=== PATIENT | male | born 1970 | race Caucasian/White ===

== ENCOUNTER 2018-07-10 10:41 | Emergency (ER) | payer BC ==
[2018-07-10] MEDS ORDERED: Ibuprofen TAB* 600 MG PO ONE (11:07)
[2018-07-10] MEDS ORDERED: Morphine VIAL* 10 MG/ML 1 ML VIAL IV ONE (11:24)
--- NOTE | 2018-07-10 11:32 | UC ---
Abdominal Pain Male HPI - HPI Summary HPI Summary: 5 days ago developed left lower quadrant abdominal pain. Had one episode of emesis due to the severe pain but he seemed to improve over the next couple of days. But since yesterday he has been much worse. He has focal left lower quadrant pain and has had intermittent loose stools and constipation over the past few days. No fever. Is diaphoretic on presentation to the . No previous similar episodes. - History of Current Complaint Chief Complaint: UCAbdominalPain Stated Complaint: ABD PAIN Time Seen by Provider: 07/10/18 11:04 Hx Obtained From: Patient Onset/Duration: Sudden Onset, Lasting Days, Still Present Timing: Constant Severity Initially: Moderate Severity Currently: Severe Pain Intensity: 10 Pain Scale Used: 0-10 Numeric Location: Discrete At: LLQ Radiates: No Character: Sharp Aggravating Factor(s): Nothing Alleviating Factor(s): Nothing Associated Signs And Symptoms: Positive: Diaphoresis, Constipation, Vomiting, Diarrhea. Negative: Fever, Back Pain, Urinary Symptoms, Penile Discharge - Allergies/Home Medications Allergies/Adverse Reactions: Allergies Allergy/AdvReac Type Severity Reaction Status Date / Time No Known Allergies Allergy Verified 01/11/13 18:03 Home Medications: Home Medications Escitalopram Oxalate [Lexapro 10 mg] 10 mg PO DAILY 07/10/18 [History Confirmed 07/10/18] Valsartan/Hydrochlorothiazide [Valsartan-Hctz 160-25 mg Tab] 1 tab PO DAILY [History Confirmed 07/10/18] PMH/Surg Hx/FS Hx/Imm Hx Cardiovascular History: Hypertension - Surgical History Surgical History: None - Family History Known Family History: Positive: Hypertension - Social History Alcohol Use: None Substance Use Type: None Smoking Status (MU): Never Smoked Tobacco - Immunization History Most Recent Tetanus Shot: 7 mos ago Review of Systems All Other Systems Reviewed And Are Negative: Yes Constitutional: Positive: Negative Respiratory: Positive: Negative Cardiovascular: Positive: Negative Gastrointestinal: Positive: Abdominal Pain, Vomiting, Diarrhea, Nausea Genitourinary: Positive: Negative Physical Exam Triage Information Reviewed: Yes Appearance: Well-Nourished, Pain Distress - SEVERE - PT LEANING OVER, HOLDING LEFT SIDE Vital Signs: Initial Vital Signs Temp 97.6 F 07/10/18 10:51 Pulse 71 07/10/18 10:51 Resp 18 07/10/18 10:51 BP 159/102 07/10/18 10:51 Pulse Ox 98 07/10/18 10:51 Laboratory Tests 07/10/18 11:12 POC Urine Color Dark yellow POC Urine Clarity Clear POC Urine pH 5.5 POC Ur Specif [place] 1.025 POC Urine Protein Trace A POC Ur Glucose (UA) Negative POC Urine Ketones Negative POC Urine Blood Negative POC Urine Nitrite Negative POC Urine Bilirubin Negative POC Urine Urobilinogen 0.2 POC U Leukocyte Esteras Negative Vital Signs Reviewed: Yes Eyes: Positive: Conjunctiva Clear ENT: Positive: Hearing grossly normal Neck: Positive: Supple Respiratory: Positive: No respiratory distress, No accessory muscle use Cardiovascular: Positive: Pulses Normal Abdomen Description: Positive: Soft, Guarding, Other: - TTP LLQ. Negative: CVA Tenderness (R), CVA Tenderness (L) Bowel Sounds: Positive: Present Musculoskeletal: Positive: No Edema Neurological: Positive: Alert Psychological: Positive: Age Appropriate Behavior Skin: Negative: Rashes Abd Pain Male Course/Dx - Course Course Of Treatment: TO [facility]. CONCERN FOR DIVERTICULITIS. RECEIVED 600MG IBUPROFEN AND 2MG MORHINE IN UC. - Differential Dx/Clinical Impression Provider Diagnosis: LLQ abdominal pain - Physician Notification/Consults Discussed Patient Care With: Kandace Thompson - TO [facility] Time Discussed With Above Provider: 11:30 Instructed by Provider To: Will See In ED Discharge - Sign-Out/Discharge Documenting (check all that apply): Patient Departure All imaging exams completed and their final reports reviewed: No Studies - Discharge Plan Condition: Stable Disposition: TRANS HIGHER LVL OF CARE FAC Referrals: Hans Davila MD [Primary Care Provider] - - Billing Disposition and Condition Condition: STABLE Disposition: Trans Higher Lvl of Care Fac
[2018-07-10 11:45] VITALS: BP 179/105
== END 2018-07-10 11:45 | disposition short-term general hospital (02) ==
LOC: UCEAST 10:41
DX: R10.32 Left lower quadrant pain (principal); R11.2 Nausea with vomiting, unspecified; R19.7 Diarrhea, unspecified; I10 Essential (primary) hypertension
CPT/HCPCS: 81003; 96374; 99213; A9270-GY; G0463; J2270

== ENCOUNTER 2018-07-10 11:58 | Observation (INO) | payer BC ==
[2018-07-10] MEDS ORDERED: Ondansetron INJ* 2 MG/ML VIAL IV ONE ×2 (12:12→17:10)
[2018-07-10] MEDS ORDERED: Morphine VIAL* 4 MG/ML VIAL (1 ml vial) IV ONE ×2 (12:12→16:10)
[2018-07-10] MEDS ORDERED: NS 0.9% 1000 ML* 1,000 ML IV ONE (12:12)
--- NOTE | 2018-07-10 12:41 | ED ---
Abdominal Pain/Male - HPI Summary HPI Summary: A 47 y/o male brought in by [facility] ambulance presents to [facility] with a chief complaint of LLQ abd pain since the morning of 07/10/18. He also had the same pain on 07/05/18 and claims that the pain eventually resolved but returned on . The patient was seen by Dr. De León at and was referred to the ED. He was gien morphine and motrin and rates his pain as a constant 8/10. He endorses diarrhea which he describes as a loose watery stool, and mild back pain. He denies testicle pain, Fever, Chills, Erythema (eyes), Sore throat, Chest pain, Shortness of Breath, Cough, Vomiting, Nausea, Dysuria, Hematuria, Edema, Rash and Dizziness. He claims that BMs do not alleviate his pain. He denies a Hx of diverticulitis but has a Hx of HTN. He denies smoking or EtOH use. - History of Current Complaint Chief Complaint: EDAbdPain Stated Complaint: ABD PAIN Time Seen by Provider: 07/10/18 12:05 Hx Obtained From: Patient Onset/Duration: Sudden Onset, Lasting Hours, Still Present Timing: Constant, Lasting Hours Severity Initially: Severe Severity Currently: Severe Pain Intensity: 8 Pain Scale Used: 0-10 Numeric Location: Discrete At: LLQ Radiates: No Aggravating Factor(s): Nothing Alleviating Factor(s): Nothing Associated Signs And Symptoms: Positive: Back Pain, Diarrhea. Negative: Urinary Symptoms, Nausea, Vomiting - Allergies/Home Medications Allergies/Adverse Reactions: Allergies Allergy/AdvReac Type Severity Reaction Status Date / Time No Known Allergies Allergy Verified 01/11/13 18:03 PMH/Surg Hx/FS Hx/Imm Hx Cardiovascular History: Reports: Hx Hypertension GI History: Denies: Other GI Disorders - Diverticulitis Infectious Disease History: No Infectious Disease History: Denies: Traveled Outside the [place] in Last 30 Days - Family History Known Family History: Positive: Hypertension - Social History Alcohol Use: None Substance Use Type: Reports: None Smoking Status (MU): Never Smoked Tobacco Review of Systems Negative: Fever, Chills Negative: Erythema Negative: Sore Throat Negative: Chest Pain Negative: Shortness Of Breath, Cough Positive: Abdominal Pain, Diarrhea. Negative: Vomiting, Nausea Positive: pain - testi. Negative: dysuria, hematuria Positive: Myalgia - mildback pain. Negative: Edema Negative: Rash Neurological: Negative - dizziness All Other Systems Reviewed And Are Negative: Yes Physical Exam - Summary Physical Exam Summary: Constitutional: Well-developed, Well-nourished, Alert. (-) Distressed Skin: Warm, Dry HENT: Normocephalic; Atraumatic Eyes: Conjunctiva normal Neck: Musculoskeletal ROM normal neck. (-) JVD, (-) Stridor, (-) Tracheal deviation Cardio: Rhythm regular, rate normal, Heart sounds normal; Intact distal pulses; The pedal pulses are 2+ and symmetric. Radial pulses are 2+ and symmetric. (-) Murmur Pulmonary/Chest wall: Effort normal. (-) Respiratory distress, (-) Wheezes, (-) Rales Abd: Soft, (+)LLQ tenderness, (-) Distension, (-) Guarding, (-) Rebound Musculoskeletal: (-) Edema Lymph: (-) Cervical adenopathy Neuro: Alert, Oriented x3 Psych: Mood and affect Normal Triage Information Reviewed: Yes Vital Signs On Initial Exam: Initial Vitals Temp Pulse Resp BP Pulse Ox 98.4 F 66 18 165/104 96 07/10/18 12:02 07/10/18 12:02 07/10/18 12:02 07/10/18 12:02 07/10/18 12:02 Vital Signs Reviewed: Yes Diagnostics - Vital Signs Vital Signs Temp Pulse Resp BP Pulse Ox 07/10/18 12:22 17 07/10/18 12:02 98.4 F 66 18 165/104 96 - Laboratory Result Diagrams: 07/10/18 12:54 07/10/18 12:54 Lab Statement: Any lab studies that have been ordered have been reviewed, and results considered in the medical decision making process. - CT abdomen/pelvis CT Interpretation Completed By: Radiologist Summary of CT Findings: 1. THERE IS A WEDGE-SHAPED AREA OF HYPOENHANCEMENT OF THE MIDPOLE THE LEFT KIDNEY. GIVEN. THE CLINICAL HISTORY, THIS IS MOST SUGGESTIVE OF A RENAL INFARCT. 2. FATTY INFILTRATION OF LIVER. 3. MILDLY ENLARGED PROSTATE. 4. DIVERTICULOSIS. ED physician has reviewed this imaging report. Abdominal Pain Fem Course/Dx - Course Course Of Treatment: A 47 y/o male brought in by [facility] ambulance presents to [facility] with a chief complaint of LLQ abd pain since the morning of 07/10/18. He also had the same pain on 07/05/18 and claims that the pain eventually resolved but returned on 07/10/18. The patient was seen by Dr. De León at and was referred to the ED. He was gien morphine and motrin and rates his pain as a constant 8/10. He endorses diarrhea which he describes as a loose watery stool , and mild back pain. He denies testicle pain, Fever, Chills, Erythema (eyes), Sore throat, Chest pain, Shortness of Breath, Cough, Vomiting, Nausea, Dysuria, Hematuria, Edema, Rash and Dizziness. He claims that BMs do not alleviate his pain. He denies a Hx of diverticulitis but has a Hx of HTN. He denies smoking or EtOH use. Abdomen/pelvis CT impression: 1. THERE IS A WEDGE-SHAPED AREA OF HYPOENHANCEMENT OF THE MIDPOLE THE LEFT KIDNEY. GIVEN. THE CLINICAL HISTORY, THIS IS MOST SUGGESTIVE OF A RENAL INFARCT. 2. FATTY INFILTRATION OF LIVER. 3. MILDLY ENLARGED PROSTATE. 4. DIVERTICULOSIS . Lab results were obtained. The patient was given morphine sulfate in the ED course. Dx: renal infarct. Dr. Alexander, hospitalist, will accept the patient for admission. The patient is agreeable with this plan. - Diagnoses Provider Diagnoses: Renal infarct - Provider Notifications Discussed Care Of Patient With: Leny Alexander Time Discussed With Above Provider: 16:20 Instructed by Provider To: Admit As Inpatient Discharge - Sign-Out/Discharge Documenting (check all that apply): Patient Departure - Admit - Discharge Plan Condition: Stable Disposition: ADMITTED TO [facility] - Attestation Statements Document Initiated by Scribe: Yes Documenting Scribe: Roger Albright Provider For Whom Scribe is Documenting (Include Credential): Huber Skaggs MD Scribe Attestation: I, Roger Albright, scribed for Huber Skaggs MD on 07/10/18 at [id number].
[2018-07-10 13:10] LABS: ABS Basophils 0 10^3/ul (0-0.2); ABS Eosinophils 0 10^3/ul (0-0.6); ABS Monocytes 0.7 10^3/ul (0-0.8); ABS Neutrophils 7.9 10^3/ul (1.5-7.7); ABS Nucleated RBC 0 10^3/ul; Eosinophil % 0.3 %; Hematocrit 44 % (42-52); Hemoglobin 15.3 g/dl (14.0-18.0); Lymphocyte % 10.3 %; Mean Corpuscular HGB Conc 35 g/dl (31-36); Mean Corpuscular Hemoglobin 30 pg (27-31); Mean Corpuscular Volume 87 fL (80-94); Mean Platelet Volume 7.9 fL (7.4-10.4); Nucleated Red Blood Cells % 0; Platelet Count 243 10^3/ul (150-450); Red Blood Count 5.08 10^6/ul (4.00-5.40); Red Cell Distribution Width 13 % (10.5-15); White Blood Count 9.6 10^3/ul (3.5-10.8)
[2018-07-10 13:27] LABS: EGFR Non-African American 83.3 (>60)
[2018-07-10] MEDS ORDERED: Iohexol 300* (CONTRAST) 10 ML SDV IV ONE (13:57)
[2018-07-10] MEDS ORDERED: Morphine VIAL* 4 MG/ML VIAL (1 ml vial) ONE (16:29)
[2018-07-10 17:00] LABS: Urine Appearance Clear; Urine Blood Negative (Negative); Urine Color Yellow; Urine Ketones Negative (Negative); Urine Protein Negative (Negative); Urine Specific Gravity > 1.060 (1.010-1.030); Urine Urobilinogen Negative (Negative)
[2018-07-10] MEDS ORDERED: Acetaminophen TAB* 325 MG PO PRN (17:47)
[2018-07-10] MEDS ORDERED: Ondansetron INJ* 2 MG/ML VIAL IV PRN (17:47)
[2018-07-10 18:25] LABS: INR 0.99 (0.77-1.02)
[2018-07-10] MEDS: Morphine VIAL* 4 MG/ML VIAL (1 ml vial) IV PRN (19:43)
[2018-07-10] MEDS: Heparin VIAL(*) 5000 UNITS/ML VIAL (FIVE THOUSAND) SUBCUT SCH (22:40)
[2018-07-10] MEDS: oxyCODONE TAB* 5 MG TAB PO PRN (22:44)
--- NOTE | 2018-07-11 00:19 | HP ---
CC: Dr. Hans Davila * ADMISSION HISTORY AND PHYSICAL: DATE OF ADMISSION: 07/10/18 PRIMARY CARE PROVIDER: Dr. Hans Davila. MY ATTENDING WHILE IN THE HOSPITAL: Dr. Felicia Rivers.* (DICTATED BY ADAN PERES) CHIEF COMPLAINT: Abdominal pain x5 days. HISTORY OF PRESENT ILLNESS: Mr. Hook is a 47-year-old male with past medical history significant only for hypertension and depression, who presents to the emergency department. On 07/05/18, he had a large Thanksgiving meal and the subsequent day, developed sudden onset severe left lower quadrant pain, which was localized, did not radiate. Had no exacerbating or alleviating factors, was not worsened by eating or movement, was sharp and constant, but with rest he did feel that this subsided. The patient had initially diarrhea without blood in it, in a nonsevere manner which then alternated with feeling of constipation and then to diarrhea again in an unpredictable pattern over 5 days. The patient's pain subsided until the night of 07/08/18 when it came back suddenly and was worse. The patient's pain was accompanied by nausea and feelings of hot and cold with sweating. The patient did not take anything for the pain. The patient feels that he was unable to get comfortable and position did not generally affect the pain. This pain again did not radiate. The patient had no swelling in his lower extremities. No palpitations. No presyncope. The patient has no family history of blood clots or personal history of blood clots. The patient has no recent prolonged travel or mobilization, surgeries or other predisposing factors for blood clots. The patient has never been told he has atrial fibrillation. The patient's pain was somewhat controlled by morphine in the emergency department. The patient had a CT of his abdomen and pelvis, which showed a wedge shaped hypodensity consistent with a renal infarct. The patient had negative urinalysis, negative lactic acid. Normal LDH. No white blood cell count. Slightly elevated CRP. Negative lipase. Normal LFTs and normal creatinine. Due to concern for renal infarction, we were asked to evaluate the patient for admission to the hospital. PAST MEDICAL HISTORY: Hypertension and depression. PAST SURGICAL HISTORY: Vasectomy. MEDICATIONS: 1. Valsartan and hydrochlorothiazide 160/25. 2. Escitalopram 10 mg p.o. daily. 3. Multivitamin 1 tab p.o. daily. ALLERGIES: No known drug allergies. FAMILY HISTORY: The patient's mother is alive, has hypertension. The patient' s father's family history is not known. The patient's maternal grandfather of an [place]. The patient maternal grandmother of old age in her 90s. SOCIAL HISTORY: The patient never smoked. The patient drinks rarely. The patient denies illicit drug use. 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 The patient is and has one 6-year-old child, who is alive and well. The patient's surrogate decision maker will be his , Margot Crawford. REVIEW OF SYSTEMS: A 14-point review of systems was reviewed and was negative except as above in the HPI. PHYSICAL EXAMINATION GENERAL: The patient is a 47-year-old male, who appears stated age and sitting comfortably in bed, in no acute distress. VITAL SIGNS: At the time of evaluation, temperature 98.4, pulse rate 69, respiratory rate 14, oxygen saturation 95% on room air, and blood pressure 150/ 101. HEENT: Head: Normocephalic, atraumatic. Sclerae anicteric. No conjunctival injection. Nasal mucosa moist. Oral mucosa moist. No pharyngeal erythema, discharge or exudate. NECK: Supple, nontender. No lymphadenopathy. No carotid bruits auscultated. No JVD. RESPIRATORY: Clear to auscultation bilaterally. No wheezes or rhonchi. Good air exchange bilaterally. CARDIAC: Regular rate and rhythm. No clicks, murmurs, gallops or rubs. Pulses are 2+ in the bilateral dorsalis pedis, posterior tibial, and radial areas. No bilateral lower extremity edema. No calf tenderness. ABDOMEN: Tender to palpation in the left lower quadrant without radiation. No referred rebound. No mass. No hepatosplenomegaly. No abdominal bruits auscultated. No hepatojugular reflux. GENITOURINARY: CVA tenderness on the left side. No suprapubic tenderness. No scrotal edema or erythema. No tenderness to palpation of the scrotum. No erythema surrounding the penis. NEUROLOGIC: Cranial nerves II through XII are intact. No focal deficits. Alert and oriented x3. PSYCHIATRIC: Pleasant and cooperative. DIAGNOSTIC STUDIES/LAB DATA: White blood cell count 9.6, hemoglobin 15.3. Hematocrit 44, platelet count 243. Sodium 137, potassium 3.6, chloride 106, carbon dioxide 23, anion gap 8, BUN 19, creatinine 0.97, glucose 101, lactic acid 1.0, calcium 9.4. Bilirubin 1.0, AST 25, ALT 44, alkaline phosphatase 66. LDH 223, CRP 16.6. Protein 7.0, albumin 4.4, globulin 2.6, lipase 38. Urine is yellow and clear greater than 1.060 specific gravity. No other significant findings. Studies: Pelvis CT from 07/10/18, read as there is a wedge shaped area of hypoenhancement in the mid pole of the left kidney. Given the clinical history , this is most suggestive of renal infarct, fatty infiltration of the liver, mildly enlarged prostate, diverticulosis. IMPRESSION: Mr. Hook is a 47-year-old male with past medical history significant only for hypertension and depression, who presents with 5 days of history consisting of intermittent severe left lower quadrant pain, who was found to have symptoms of a renal infarct. CT examination and will be admitted to the hospital for pain control and further evaluation of the possible cause of this abnormality. 1. Severe abdominal pain, radiographic evidence of renal infarct. The patient has no known risk factors for arterial embolism except for hypertension and obesity. The patient will have a transthoracic echocardiogram to look for renal thrombus, valvular abnormalities or dilatation predisposing to atrial fibrillation. The patient will be monitored on telemetry for atrial fibrillation. If this shows nothing, the patient possibly would benefit from a long-term environmental monitoring specialist. The patient will have a PT and INR drawn. The patient had no signs of stenosis or clot on his CT of the abdomen and pelvis with contrast. Nephrology consult will be obtained for the possibility of further imaging helping to elucidate the patient's condition. We will defer hypercoagulable workup at this time until more common causes of embolism can be made more less likely such as atrial fibrillation. If the patient's echocardiogram and telemetry monitoring are unremarkable, hypercoagulable workup will be considered. The patient has negative lactic acid and LDH, not consistent with renal infarction. It is quite possibly this is due to remote history of the patient's inciting incident. The patient's urinalysis shows his urine is concentrated. The patient will be fluid expanded to help perfuse his kidneys and have a repeat laboratory work in the morning. The patient will have pain control with morphine and oxycodone. If a likely cause of embolism is identified, the patient will be anticoagulated. 2. Hypertension. The patient is hypertensive. This is possibly consistent with a renal infarction. Continue the patient's valsartan at an increased dose as well as the patient's hydrochlorothiazide. 3. Depression. Continue escitalopram at home dose. 4. DVT prophylaxis. The patient will have heparin subcu. 5. FEN. The patient will have a heart healthy diet without caffeine and fluids as above. 6. Disposition. The patient is admitted to observation. TIME SPENT: Approximately 60 minutes were spent on admission of this patient, 30 of which was spent [id number] with the patient obtaining history and physical and discussing treatment plan. This plan was discussed with my attending, Dr. Leny Alexander, she is in agreement. ADAN PERES [id number]/CPS #: [id number] MTDD
[2018-07-11] MEDS: Morphine VIAL* 4 MG/ML VIAL (1 ml vial) IV PRN (04:27)
[2018-07-11] MEDS: Heparin VIAL(*) 5000 UNITS/ML VIAL (FIVE THOUSAND) SUBCUT SCH ×2 (05:43→14:38)
[2018-07-11 06:12] LABS: ABS Basophils 0 10^3/ul (0-0.2); ABS Eosinophils 0 10^3/ul (0-0.6); ABS Lymphocytes 1.3 10^3/ul (1.0-4.8); ABS Monocytes 0.9 10^3/ul (0-0.8); ABS Neutrophils 8.6 10^3/ul (1.5-7.7); ABS Nucleated RBC 0 10^3/ul; Eosinophil % 0.1 %; Hematocrit 42 % (42-52); Hemoglobin 14.4 g/dl (14.0-18.0); Lymphocyte % 12.1 %; Mean Corpuscular HGB Conc 34 g/dl (31-36); Mean Corpuscular Hemoglobin 30 pg (27-31); Mean Corpuscular Volume 87 fL (80-94); Mean Platelet Volume 7.7 fL (7.4-10.4); Nucleated Red Blood Cells % 0.1; Platelet Count 233 10^3/ul (150-450); Red Blood Count 4.85 10^6/ul (4.00-5.40); Red Cell Distribution Width 13 % (10.5-15); White Blood Count 10.8 10^3/ul (3.5-10.8)
[2018-07-11 06:32] LABS: EGFR Non-African American 83.3 (>60)
[2018-07-11] MEDS ORDERED: Hydrochlorothiazide TAB* 25 MG PO SCH (09:00)
[2018-07-11] MEDS ORDERED: CMC:Escitalopram (NF) 10 MG TAB PO SCH (09:00)
[2018-07-11] MEDS ORDERED: Valsartan TAB* 160 MG PO SCH (09:00)
[2018-07-11] MEDS: oxyCODONE TAB* 5 MG TAB PO PRN ×2 (11:28→16:02)
--- NOTE | 2018-07-11 14:34 | ECHO ---
Patient: LANDON HUGO [facility] Rec#: [id number] : 1970 Date: 07/11/2018 Age: 47y Height: 196 cm / 77.2 in Weight: 122 kg / 268.9 lbs Sex: M BSA: 2.54 Room#: [facility] Admit Date#: 07/10/2018 Type: Inpatient Referring: Bo Galvez Reading: Shoaib Cardoso DO Hose Stripper: Stacia Duong RDCS,RDMS CC: Hans Davila MD Transthoracic Echocardiogram Indication: Peripheral embolic event BP: 144/82 HR: 77 Rhythm: NSR Findings History: HTN Technical Comments: The study quality is good. Left Ventricle: The left ventricular chamber size is normal. Mild concentric left ventricular hypertrophy is observed. Global left ventricular wall motion and contractility are within normal limits. The left ventricle appears hyperdynamic. The estimated ejection fraction is greater than 65%. There is no consistent Doppler evidence of clinically significant diastolic dysfunction. Left Atrium: The left atrium is slightly dilated. Right Ventricle: The right ventricular chamber size and systolic function are within normal limits. Right Atrium: The right atrium is slightly dilated. Aortic Valve: The aortic valve is trileaflet. Systolic excursion of the aortic valve is normal. There is a trace of aortic regurgitation. There is no evidence of aortic stenosis. Mitral Valve: The mitral valve leaflets appear normal. There is a trace of mitral regurgitation. There is no evidence of mitral stenosis. Tricuspid Valve: The tricuspid valve leaflets are normal. There is no evidence of tricuspid valve regurgitation. Unable to estimate the right ventricular systolic pressure. Pulmonic Valve: The pulmonic valve structure is not well visualized. There is a trace pulmonic regurgitation. There is no pulmonic stenosis. Pericardium: There is no significant pericardial effusion. Aorta: There is borderline dilatation of the ascending aorta. There is no dilatation of the aortic arch. There is mild dilatation of the aortic root. Pulmonary Artery: The main pulmonary artery is not well visualized. Venous: The inferior vena cava is dilated. There is a greater than 50% respiratory change in the inferior vena cava dimension. Conclusions The left ventricular chamber size is normal. Mild concentric left ventricular hypertrophy is observed. Global left ventricular wall motion and contractility are within normal limits. The left ventricle appears hyperdynamic. The estimated ejection fraction is greater than 70%. The left atrium is slightly dilated. The right ventricular chamber size and systolic function are within normal limits. No significant valvular abnormalities noted There is mild dilatation of the aortic root. There is borderline dilatation of the ascending aorta. None prior for comparison at time of interpretation Measurements Name Value Normal Range RVIDd (AP) 2D 3.2 cm (0.9 - 2.6) RVDdMajor (2D) 3.4 cm (2.2 - 4.4) RAd ISD 4CH 5.5 cm (3.4 - 4.9) RA (A4C)W 3.7 cm (2.9 - 4.6) IVSd (2D) 1.2 cm (0.6 - 1) LVPWd (2D) 1 cm (0.6 - 1) LVIDd (2D) 4.9 cm (3.6 - 5.4) LVIDs (2D) 2.5 cm - LV FS (2D) 48 % (25 - 45) Aortic Annulus 2.5 cm (1.4 - 2.6) Ao root diameter (2D) 3.6 cm (2.1 - 3.5) Ascending Ao 3.6 cm (2.1 - 3.4) Aortic arch 3.3 cm (1.8 - 3.4) LA dimension (AP) 2D 4.7 cm (2.3 - 3.8) LAd ISD 4CH 6.1 cm (2.9 - 5.3) LA ISD 4CH W 5.2 cm (2.5 - 4.5) Name Value Normal Range LA ESV BP (A/L) index 35 ml/m2 - Name Value Normal Range MV E-wave Vmax 0.8 m/sec - MV deceleration time 253 msec - MV A-wave Vmax 0.7 m/sec - MV E:A ratio 1.1 ratio - P. vein S-wave Vmax 0.6 m/sec - P. vein D-wave Vmax 0.4 m/sec - P. vein S:D Vmax ratio 1.6 ratio - P. vein A-wave duration 132 msec - LV septal e' Vmax 0.1 m/sec - LV lateral e' Vmax 0.12 m/sec - LV E:e' septal ratio 8 ratio - LV E:e' lateral ratio 7 ratio - Name Value Normal Range AV Vmax 1.8 m/sec - AV VTI 30.5 cm - AV peak gradient 13 mmHg - AV mean gradient 7 mmHg - LVOT Vmax 1.5 m/sec - LVOT VTI 26 cm - LVOT peak gradient 9 mmHg - LVOT mean gradient 5 mmHg - Name Value Normal Range RAP 8 mmHg - IVC diameter 2.5 cm - Name Value Normal Range PV Vmax 0.9 m/sec - PV peak gradient 3.2 mmHg -
[2018-07-11 14:59] VITALS: BP 122/86
[2018-07-11] MEDS ORDERED: Rivaroxaban TAB(*) 15 MG PO SCH ×2 (16:00→21:00)
--- NOTE | 2018-07-12 14:38 | DS ---
CC: Dr. Hans Davila * DISCHARGE SUMMARY: DATE OF ADMISSION: 07/10/18 DATE OF DISCHARGE: 07/11/18 PRIMARY CARE PROVIDER: Dr. Hans Davila. MY ATTENDING WHILE IN THE HOSPITAL: Dr. Felicia Rivers.* (DICTATED BY ADAN PERES) PRIMARY DISCHARGE DIAGNOSIS: Abdominal pain, probable renal infarction. SECONDARY DISCHARGE DIAGNOSES: 1. Hypertension. 2. Depression. STUDIES DONE WHILE IN THE HOSPITAL: Abdomen and pelvis CT from 07/10/18 read as , there is a wedge-shaped area of hypointense within the mid pole of left kidney. Given the clinical history, this is more suggestive of renal infarct, fatty infiltration of liver, mildly enlarged prostate, diverticulosis. Transthoracic echocardiogram from 07/10/18 read as left ventricular chamber size normal, mild concentric left ventricular hypertrophy is observed, global left ventricular wall motion contractility within normal limits, left ventricle appears hyperdynamic, estimated ejection fraction is 70%, left atrium is slightly dilated, left ventricle chamber size is within normal limits. No significant valvular abnormalities. Mild dilatation of aortic root. Borderline dilatation in the ascending aorta. Electrocardiogram shows normal sinus rhythm, no abnormalities. Chest x-ray reveals no evidence for acute disease. MEDICATIONS AT DISCHARGE: 1. Losartan/hydrochlorothiazide 160/25 1 tab p.o. daily. 2. Escitalopram 10 mg p.o. daily. 3. Tylenol 650 mg p.o. q.6 hours as needed. 4. Oxycodone 5 mg p.o. q.4 hours as needed. 5. Rivaroxaban 15 mg p.o. b.i.d. HOSPITAL COURSE: This is a brief summary of the patient's presentation. For more details, please see the history and physical from ADAN Peres, on . In brief, the patient is a 47-year-old with past medical history significant for the above, who presented with fluctuating course of abdominal pain over the course of 5 days, precipitated by fatty meal and accompanied by alternating constipation and diarrhea. The patient states the pain was in his left flank and radiates to his back. There were no exacerbating or alleviating factors, not affected by eating. The patient never had anything like this before. The patient had no history of blood clots. The patient initially had 2 days of symptoms, which then subsided spontaneously and then returned to a worsened degree, 07/08/18, and then persisted until presentation on . The patient's pain was controlled with morphine. While in the emergency department, the patient had a CT of his abdomen and pelvis with contrast as above with evidence for possible renal infarction. The patient had no significant laboratory abnormalities. The patient had a benign urinalysis showing only high specific gravity indicating possible dehydration, likely from depressed appetite from his abdominal pain. The patient had no white blood cell count, no anemia, no lower platelet count. The patient's INR and APTT were normal. The patient had no lactic acid. The patient had lactic dehydrogenase of 223, which declined to 175 and on 07/11/18, the patient's pain decreased significantly overnight with decreasing needs of pain medication. The patient had a transthoracic echocardiogram, which was read as above, showing only a hyperdynamic left ventricle, likely due to his dehydrate state. The patient had a mildly dilated left atrium and mildly hypertrophic left ventricle indicating the predisposition for atrial fibrillation. Given the patient's lack of abnormality in his blood work and the patient had normal urinalysis, the patient was not believed to have a kidney stone, urinary tract infection, mesenteric ischemia, intestinal pathology, or other explanation for his intraabdominal pain, so despite lack of laboratory evidence of renal infarction, the patient was empirically placed on therapeutic dose of Xarelto at 15 mg p.o. b.i.d. with a presumed most likely cardioembolic source of a blood clot in his renal artery. The patient was stable and therefore discharged on 07/11/18. PHYSICAL EXAMINATION ON DAY OF DISCHARGE: General: The patient is a 47-year- old male who appears stated age, sitting comfortably in bed, in no acute distress. Vital signs at the time of discharge, temperature 98.6, pulse rate 74 , respiratory rate 19, oxygen saturation 99% on room air, blood pressure 122/ 86. HEENT: Head normocephalic and atraumatic. Sclerae anicteric. No conjunctival injection. Nasal mucosa moist. Oral mucosa moist. No oropharyngeal erythema, discharge, or exudate. Neck: Supple and nontender. No lymphadenopathy. No carotid bruits auscultated. No JVD. Cardiac: Regular rate and rhythm. No clicks, murmurs, gallops, or rubs. Pulse 2+ in the bilateral dorsalis pedis, posterior tibialis, and radial areas. No bilateral lower extremity edema. Respiratory: Clear to auscultation bilaterally. No wheezes, rales, or rhonchi. Good air exchange bilaterally. Abdomen: Soft, nontender, and nondistended. Bowel sounds present. Normoactive in all 4 quadrants. Tenderness to palpation in the left lower quadrant without guarding or rebound. Genitourinary: Left-sided CVA tenderness. No suprapubic tenderness. No genital pathology. Skin: Clean, dry, and intact. No rash. Neuro: Cranial nerves II through XII were intact. No focal deficits. Alert and oriented x3. DISCHARGE PLAN: The patient will be discharged to home. The patient will be on Xarelto starting at 15 mg p.o. b.i.d. for 21 days as a treatment for acute embolism. The patient should have a correction monitor placed for evaluation of paroxysmal atrial fibrillation as a possible cause of his renal infarction. The patient has also had a hypercoagulable workup sent, which we followed up upon by his primary care doctor and a referral to Hematology and prolongation of his anticoagulation should be considered at that time. The patient should continue with his antihypertensive therapy and avoid caffeine to decrease the possibility of provoking arrhythmia. The patient should have oxycodone for pain control until he follows up with his primary care provider, further pain control should be taken from there. The patient should return to the hospital for alarming symptoms such as chest pain, shortness of breath, severe palpitations, severely increased abdominal pain, or other alarming symptoms. The patient should have a heart- healthy diet without caffeine and engage in activities as tolerated. TIME SPENT: Approximately 50 minutes was spent on the discharge of this patient , 40 of which was spent [id number] with the patient obtaining history and physical and discussing treatment plan. ADAN PERES [id number]/[facility] #: [id number] BREN[place]
== END 2018-07-11 17:58 | disposition home or self-care (01) ==
LOC: ED 11:58 → MEDTELE 17:47
PROVIDERS: ADMIT Internal Medicine; ATTEND Internal Medicine
DX: R10.84 Generalized abdominal pain (principal); I10 Essential (primary) hypertension; F32.9 Major depressive disorder, single episode, unspecified; M54.9 Dorsalgia, unspecified; R19.7 Diarrhea, unspecified
CPT/HCPCS: 36415; 71045; 74177; 80048; 80053; 80061; 81003; 81240; 81241; 83605; 83615; 83690; 83735; 85025; 85300; 85303; 85306; 85307; 85379; 85610; 85613; 85730; 86140; 86147; 87040; 93005; 93306; 96361; 96365; 96366; 96372; 96375; 96376; 99284; A9270-GY; G0378; J1644; J2270; J2405; Q9967